=== PATIENT | male | born 2000 | race Caucasian/White ===

== ENCOUNTER 2021-11-29 21:10 | Emergency (ER) | payer OTHER ==
[~2021-11-29] VITALS: Ht 190.5 cm; Wt 96.7 kg
[2021-11-29 21:12] VITALS: BP 126/58
[2021-11-29] MEDS ORDERED: VITA-199 PO (21:23)
[2021-11-29] MEDS ORDERED: ACET32TAB PO (21:23)
[2021-11-29] MEDS ORDERED: B-12100010 PO (21:23)
[2021-11-29] MEDS ORDERED: VITA100T59 PO (21:23)
[2021-11-29] MEDS ORDERED: BENA25CA4 PO (21:23)
[2021-11-30] MEDS ORDERED: HYDR25OIN TOP (00:24)
== END 2021-11-30 01:07 | disposition home or self-care (01) ==
LOC: M ED 21:10
DX: S60.561A Insect bite (nonvenomous) of right hand, initial encounter (principal); W57.XXXA Bitten or stung by nonvenomous insect and other nonvenomous arthropods, initial encounter; Z79.899 Other long term (current) drug therapy; Z88.0 Allergy status to penicillin

== ENCOUNTER 2024-06-24 11:55 | Emergency (ER) | payer OTHER ==
[~2024-06-24] VITALS: Ht 190.5 cm; Wt 125.8 kg
[~2024-06-24 11:55] MED LIST: ACET32TAB PO; B-12100010 PO; BENA25CA4 PO; HYDR25OIN TOP; VITA-199 PO; VITA100T59 PO
[2024-06-24] MEDS ORDERED: ACET-683 PO (12:29)
[2024-06-24] MEDS: IBUPROFEN 600MG TAB PO ONE (16:40)
[2024-06-24] MEDS ORDERED: IBUP1TAB6 PO (16:43)
[2024-06-24 16:57] VITALS: BP 141/86; TEMP 98.5; O2SAT 100
== END 2024-06-24 16:58 | disposition home or self-care (01) ==
LOC: M ED 11:55
DX: S92.812A Other fracture of left foot, initial encounter for closed fracture (principal); Y92.9 Unspecified place or not applicable; Y93.9 Activity, unspecified; Y99.9 Unspecified external cause status; Z88.1 Allergy status to other antibiotic agents; Z79.1 Long term (current) use of non-steroidal anti-inflammatories (NSAID)

== ENCOUNTER 2025-03-11 10:02 | Emergency (ER) | payer OTHER ==
[~2025-03-11] VITALS: Ht 190.5 cm; Wt 129.0 kg
[~2025-03-11 10:02] MED LIST changes: +ACET-683 PO; +SFHIBU600 PO
[2025-03-11 13:42] LABS: BASO # 0.1 10^3/uL (0.0-0.2); BASO % 0.7 % (0.0-1.0); EOS # 1.0 10^3/uL (0.0-0.5); EOS % 9.9 % (0.0-3.0); LYMPH # 1.7 10^3/uL (1.5-5.0); LYMPH % 16.9 % (24.0-44.0); MONO # 0.5 10^3/uL (0.0-0.8); MONO % 5.5 % (2.0-8.0); NEUTROPHILS # 6.6 10^3/uL (1.5-8.5); NEUTROPHILS % 66.8 % (36.0-66.0); PLATELET COUNT, AUTOMATED 269 10^3/uL (150-450)
[2025-03-11 14:13] LABS: ALT/SGPT 51 U/L (7.0-40); AST/SGOT 32 U/L (<34); C REACTIVE PROTEIN QUANTITATIV 1.26 MG/DL (<1.0); CALCIUM LEVEL 9.5 MG/DL (8.5-10.1); CARBON DIOXIDE LEVEL 28 MMOL/L (20-31); CHLORIDE LEVEL 107 MMOL/L (98-107); CREATININE FOR GFR 1.06 MG/DL (0.70-1.30); GLOMERULAR FILTRATION RATE > 90.0 (>60); POTASSIUM SERUM 4.4 MMOL/L (3.5-5.1); SODIUM LEVEL 145 MMOL/L (136-145)
[2025-03-11] MEDS ORDERED: COLC0.6T53 PO (15:36)
[2025-03-11 15:46] VITALS: BP 138/84; TEMP 97.3; O2SAT 99
[2025-03-11] MEDS: COLCHICINE 0.6 MG TABLET PO ONE ×2 (15:49)
== END 2025-03-11 16:08 | disposition home or self-care (01) ==
LOC: M ED 10:02
DX: M10.072 Idiopathic gout, left ankle and foot (principal); M25.475 Effusion, left foot; S92.315A Nondisplaced fracture of first metatarsal bone, left foot, initial encounter for closed fracture; Y92.9 Unspecified place or not applicable; Y93.9 Activity, unspecified; Y99.0 Civilian activity done for income or pay; F10.10 Alcohol abuse, uncomplicated; Z88.1 Allergy status to other antibiotic agents; Z79.1 Long term (current) use of non-steroidal anti-inflammatories (NSAID); Z79.899 Other long term (current) drug therapy